=== PATIENT | male | born 1985 | race Caucasian/White ===

== ENCOUNTER 2019-02-25 05:45 | Emergency (ER) | payer OTHER ==
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
--- NOTE | 2019-02-25 20:17 | CT ---
CT cervical spine Technique: Multiple axial sections were obtained from above C1 inferiorly to the tip of T2. Reconstructed coronal and sagittal images were reviewed. Comparison: No previous study. Findings: Vertebral body heights and disc spaces are maintained. Vertebral bodies and posterior arches are intact. No fracture or abnormal subluxation is seen. No bony central or bony neural foraminal stenosis is seen. Mild increased density seen within and around the left parotid gland which is slightly enlarged as compared to the right side. Please correlate if patient has any soft tissue injury to the left side of the face. Impression: 1. No acute bony abnormality seen on CT study of the cervical spine. 2. Questionable findings within the left parotid salivary gland as noted above. Diagnostic code #2 I agree with preliminary report issued by [facility] ([facility] report finalized on 02/25/19, 7:30 AM Central Time)
--- NOTE | 2019-02-25 20:17 | CT ---
Head CT Technique: Multiple axial sections through the brain were obtained. Intravenous contrast was not utilized. Comparison: No previous intracranial imaging. Findings: Ventricles along with basal cisterns and sulci over the convexities are mildly prominent. No abnormal parenchymal densities are seen. No evidence of intracranial hemorrhage. No midline shift or mass effect is seen. Displaced lateral wall orbital fracture noted on the left side. There is displacement by about 7 mm of fragments laterally. Fracture involves the junction of the lateral superior orbit. Soft tissue air noted within the left periorbital region and lateral to the left periorbital region. Soft tissue injury is seen. Minimally displaced nasal bone fracture is seen. Inferior orbital floor fracture noted on the left side with depressed fragments into the maxillary sinus by about 7.4 mm. There is displacement of orbital fat as well as the inferior rectus muscle which appears swollen. Soft tissue injury is seen very close to the left globe although left globe appears normal in size. Lateral and superior rectus muscles are within normal limits. There are some small bony fragments being seen close to the anterior and lateral globe. Blood noted within the left maxillary sinus. Impression: 1. Bony fractures within the lateral left orbital wall, inferior left orbital floor and nasal bone. 2. Soft tissue swelling and soft tissue air within the left periorbital region and extending laterally. 3. Several small bony densities which are very close to the anterior and lateral globe but size of the globe appears maintained at this time. 4. No acute intracranial abnormality is seen. Diagnostic code #5 I agree with preliminary report issued by [facility] ([facility] report finalized on 02/25/19, 7:27 AM Central Time)
== END 2019-02-25 07:10 ==
LOC: JD.ED 05:45
DX: S02.32XB Fracture of orbital floor, left side, initial encounter for open fracture (principal); S02.80XB Fracture of other specified skull and facial bones, unspecified side, initial encounter for open fracture; S01.112A Laceration without foreign body of left eyelid and periocular area, initial encounter; S01.21XA Laceration without foreign body of nose, initial encounter; S01.312A Laceration without foreign body of left ear, initial encounter; S40.212A Abrasion of left shoulder, initial encounter; S60.512A Abrasion of left hand, initial encounter; S60.511A Abrasion of right hand, initial encounter; S80.211A Abrasion, right knee, initial encounter; V49.9XXA Car occupant (driver) (passenger) injured in unspecified traffic accident, initial encounter
CPT/HCPCS: 70450; 70450-26; 72125; 72125-26; 99285; 99285-25